=== PATIENT | male | born 2000 | race Two or more races ===

== ENCOUNTER 2024-03-26 10:54 | Emergency (ER) | payer SELFPAY ==
[~2024-03-26] VITALS: Ht 170.2 cm; Wt 68.3 kg
[2024-03-26 12:01] VITALS: BP 123/78; PULSE 60; RESP 16; TEMP 98.2; O2SAT 100
[2024-03-26] MEDS: KETOROLAC TROMETH 30 MG/ML 1ML VIAL IM ONE (12:27)
[2024-03-26] MEDS ORDERED: NAP500T PO (12:34)
== END 2024-03-26 12:36 | disposition home or self-care (01) ==
LOC: ER 10:54
DX: M54.59 Other low back pain (principal); Z79.1 Long term (current) use of non-steroidal anti-inflammatories (NSAID)
CPT/HCPCS: 72100; 96372; 99283; J1885